=== PATIENT | female | born 1985 | race African-American/Black ===

== ENCOUNTER 2017-09-19 11:03 | Emergency (ER) | payer MEDICAID ==
[~2017-09-19] VITALS: Ht 170.2 cm; Wt 59.0 kg
[2017-09-19] MEDS ORDERED: MORPHINE SULFATE 10 MG/ML CPJ IM ONE (11:45)
[2017-09-19] MEDS ORDERED: KETOROLAC 60MG/2ML VIAL IM ONE (11:45)
[2017-09-19 13:03] LABS: HCG SCREEN NEGATIVE
[2017-09-19 14:22] VITALS: BP 120/81
== END 2017-09-19 14:28 | disposition home or self-care (01) ==
LOC: ER 11:57
DX: M25.562 Pain in left knee (principal); J45.909 Unspecified asthma, uncomplicated; F17.200 Nicotine dependence, unspecified, uncomplicated; Z98.51 Tubal ligation status
CPT/HCPCS: 73562; 84703; 96372; 99285; J1885; J2270; L1830; Z7610

== ENCOUNTER 2018-06-08 14:18 | Emergency (ER) | payer OTHER, MEDICAID ==
[~2018-06-08] VITALS: Ht 170.2 cm; Wt 59.0 kg
[2018-06-08] MEDS ORDERED: FAMOTIDINE 20MG TABLET PO ONE (17:15)
[2018-06-08] MEDS ORDERED: DIPHENHYDRAMINE 25MG CAPSULE PO ONE (17:15)
[2018-06-08] MEDS ORDERED: DEXAMETHASONE 10 MG/ML VIAL IM ONE (17:15)
[2018-06-08 18:20] VITALS: BP 120/78
== END 2018-06-08 18:21 | disposition home or self-care (01) ==
LOC: ER 14:40
DX: S40.861A Insect bite (nonvenomous) of right upper arm, initial encounter (principal); S70.361A Insect bite (nonvenomous), right thigh, initial encounter; S20.461A Insect bite (nonvenomous) of right back wall of thorax, initial encounter; F17.200 Nicotine dependence, unspecified, uncomplicated; W57.XXXA Bitten or stung by nonvenomous insect and other nonvenomous arthropods, initial encounter; Y93.89 Activity, other specified; Y92.89 Other specified places as the place of occurrence of the external cause; Y99.8 Other external cause status
CPT/HCPCS: 96372; 99283; J1100; Q0163